=== PATIENT | female | born 1965 | race Caucasian/White ===

== ENCOUNTER 2019-01-19 20:18 | Emergency (ER) | payer BC ==
[~2019-01-19] VITALS: Ht 160 cm; Wt 62.6 kg
[2019-01-19 20:39] VITALS: BP_SYST 122
[2019-01-19 22:30] VITALS: BP_SYST 122
== END 2019-01-19 22:30 | disposition home or self-care (01) ==
LOC: SED 20:18
DX: J40 Bronchitis, not specified as acute or chronic (principal); Z88.2 Allergy status to sulfonamides
CPT/HCPCS: 71045; 99283

== ENCOUNTER 2022-06-27 14:06 | Emergency (ER) | payer BC ==
[~2022-06-27] VITALS: Ht 160 cm; Wt 57.2 kg
--- NOTE | 2022-06-27 14:10 | NUR ---
ER at bedside examining patient.
--- NOTE | 2022-06-27 14:15 | NUR ---
Urine specimen collected and sent to lab.
--- NOTE | 2022-06-27 14:30 | NUR ---
Pt with radiology dept for lung xray.
--- NOTE | 2022-06-27 14:45 | NUR ---
[facility] bedside collecting specimen.
[2022-06-27 14:55] VITALS: BP_SYST 134
--- NOTE | 2022-06-27 15:00 | NUR ---
Pt presents to the ER bib self from urgent care. CC Weakness. Pt is fatique, blurred vision, sob r/t anxiety as stated by pt. Pt denies pain denies NVD. Pt notes IBS changed appetite and intake in the past week. Pt states feeling like her electrolytes are low. Pt articulates history well noting fibromyalgia, and Gilbert Syndrome with high bilirubins.
[2022-06-27 15:46] LABS: BILIRUBIN,URINE NEGATIVE (NEGATIVE); BLOOD, URINE NEGATIVE (NEGATIVE); CLARITY/URINE CLEAR (CLEAR); COLOR,URINE YELLOW (YELLOW); GLUCOSE,URINE NEGATIVE (NEGATIVE); KETONES,URINE NEGATIVE (NEGATIVE); LEUKOCYTE ESTERASE ,URINE NEGATIVE (NEGATIVE); NITRITE, URINE NEGATIVE (NEGATIVE); PROTEIN URINE NEGATIVE (NEGATIVE); UROBILINOGEN,URINE 0.2 (0.2-1.0)
[2022-06-27 15:49] LABS: BASOPHILS % (AUTO) 0.6 % (0.0-2.0); EOSINOPHILS # (AUTO) 0.1 K/uL (0.0-0.4); EOSINOPHILS % (AUTO) 1.1 % (0.0-4.0); HEMOGLOBIN 13.6 g/dL (12.0-16.0); LYMPHOCYTES # (AUTO) 2.4 K/uL (1.0-5.5); LYMPHOCYTES % (AUTO) 37.3 % (20.5-51.5); MEAN CORPUSCULAR HEMOGLOBIN 29 pg (27-31); MEAN CORPUSCULAR HGB CONC 34 % (32-36); MEAN CORPUSCULAR VOLUME 86 fL (79.0-98.0); MONOCYTES # (AUTO) 0.3 K/uL (0.0-1.0); MONOCYTES % (AUTO) 5.2 % (1.7-9.3); NEUTROPHILS # (AUTO) 3.6 K/uL (1.8-7.7); NEUTROPHILS % (AUTO) 55.8 % (40.0-70.0); PLATELET COUNT (AUTO) 218 K/uL (130-430); RED BLOOD CELL COUNT(AUTO) 4.66 MIL/uL (4.2-6.2); RED CELL DISTRIBUTION WIDTH 13.1 % (9.0-15.0); WHITE BLOOD COUNT (AUTO) 6.4 K/uL (4.8-10.8)
[2022-06-27 15:59] LABS: ACETONE, SERUM NEGATIVE (NEGATIVE)
[2022-06-27 16:07] LABS: ANION GAP 10 (5-15); CALCIUM 9.6 mg/dL (8.4-11.0); CHLORIDE 103 mmol/L (98-107); CREATININE 0.75 mg/dL (0.55-1.30); GLUCOSE 91 mg/dL (70-99); POTASSIUM 3.9 mmol/L (3.5-5.1); SODIUM SERUM 142 mmol/L (136-145); UREA NITROGEN, BLOOD 16 mg/dL (8-21)
[2022-06-27 16:11] LABS: ALANINE AMINOTRANSFERASE 22 U/L (12-78); ALBUMIN 4.3 g/dL (3.4-4.8); ASPARTATE AMINOTRANSFERASE 21 U/L (10-37); TOTAL BILIRUBIN 1.5 mg/dL (0.0-1.0)
--- NOTE | 2022-06-27 16:30 | NUR ---
NOEL Pastor gained IV access 20 gauge.
[2022-06-27] MEDS ORDERED: NACL 0.9% 1,000 ML IV ONE (17:45)
[2022-06-27 18:49] VITALS: BP_SYST 134
--- NOTE | 2022-06-27 18:51 | NUR ---
Patient given written and verbal discharge instructions and verbalizes understanding. ER MD discussed with patient the results and treatment provided. Patient in stable condition. ID arm band removed. IV catheter removed intact and dressing applied, no active bleeding. Opportunity for questions provided and answered. Medication side effect fact sheet provided.
== END 2022-06-27 18:49 | disposition home or self-care (01) ==
LOC: SED 14:06
DX: R53.1 Weakness (principal); R42 Dizziness and giddiness; R63.0 Anorexia; Z88.2 Allergy status to sulfonamides; Z79.899 Other long term (current) drug therapy
CPT/HCPCS: 99285; 96360; 71045; 80053; 82009; 82140; 82550; 85025; 36415; 93005; 81025; 83605; 81003; J7030

== ENCOUNTER 2023-09-18 15:47 | Emergency (ER) | payer BC ==
[~2023-09-18] VITALS: Ht 160 cm; Wt 59.0 kg
[2023-09-18 15:53] VITALS: BP_SYST 141; PULSE 99; RESP 20; TEMP 97.8; O2SAT 100
[2023-09-18] MEDS ORDERED: KETOROLAC TROMETHAMINE 30 MG VIAL IM ONE (16:00)
[2023-09-18] MEDS ORDERED: METOCLOPRAMIDE HCL 10 MG/2 ML VIAL IM ONE (16:00)
[2023-09-18 18:17] VITALS: BP_SYST 138; PULSE 83; RESP 16; TEMP 97.7; O2SAT 96
== END 2023-09-18 18:15 | disposition home or self-care (01) ==
LOC: SED 15:47
DX: S06.0X0A Concussion without loss of consciousness, initial encounter (principal); Z88.2 Allergy status to sulfonamides; Z79.899 Other long term (current) drug therapy; W23.1XXA Caught, crushed, jammed, or pinched between stationary objects, initial encounter; Y93.89 Activity, other specified; Y92.89 Other specified places as the place of occurrence of the external cause; Y99.8 Other external cause status
CPT/HCPCS: 99284; 70450; 76376; J2765; J1885